=== PATIENT | female | born 1990 | race Caucasian/White ===

== ENCOUNTER 2021-02-27 14:16 | Emergency (ER) | payer OTHER ==
[~2021-02-27] VITALS: Ht 152.4 cm; Wt 68.2 kg
[2021-02-27 14:36] VITALS: PULSE 80; TEMP 98
[2021-02-27 16:13] LABS: HIV 1/2 Antibodies Non-Reactive; HIV-1p24 Antigen Non-Reactive
[2021-02-27 22:24] LABS: HEPATITIS B SURFACE ANTIGEN Negative (Negative); HEPATITIS C VIRUS ANTIBODY Negative (Negative)
== END 2021-02-27 15:15 | disposition home or self-care (01) ==
LOC: COL.ER 14:16 → COL.EMP 14:16 → EDSTATUS 14:34 → COL.ER 15:15
PROVIDERS: Nurse Practitioner
DX: S61.230A Puncture wound without foreign body of right index finger without damage to nail, initial encounter (principal); W46.0XXA Contact with hypodermic needle, initial encounter